=== PATIENT | female | born 1980 | race Caucasian/White ===

== ENCOUNTER 2022-12-11 16:56 | Emergency (ER) | payer OTHER ==
[2022-12-11] MEDS ORDERED: LORazepam 2 MG/ML VIAL ONE (17:42)
[2022-12-11] MEDS ORDERED: Ringers Lactate 1,000 ML IV ONE (17:43)
[2022-12-11 17:59] LABS: Absolute Lymphocytes (CBC) 1.8 K/uL (0.7-4.9); Hematocrit 43.1 % (36.0-45.0); Lymphocytes % 12.9 % (15.3-44.8); MPV 7.7 fL (7.6-11.3); RBC Red Blood Cell Count 4.68 M/uL (3.86-4.86)
[2022-12-11 18:04] LABS: Protime INR 0.95
[2022-12-11 18:09] LABS: Barbiturates NEGATIVE (NEGATIVE); Benzodiazepines NEGATIVE (NEGATIVE); Cocaine NEGATIVE (NEGATIVE); METHAMPHETAM NEGATIVE (NEGATIVE); Methadone NEGATIVE (NEGATIVE); Opiates NEGATIVE (NEGATIVE); Phencyclidine NEGATIVE (NEGATIVE); THC Cannibis NEGATIVE (NEGATIVE)
--- NOTE | 2022-12-11 18:09 | RAD REPORT ---
EXAM DESCRIPTION: RAD - Chest Single View - 12/11/2022 6:01 pm CLINICAL HISTORY: syncope/seizure Chest pain. COMPARISON: No comparisons FINDINGS: Portable technique limits examination quality. The lungs are grossly clear. The heart is normal in size. No displaced fractures. IMPRESSION: No acute intrathoracic process suspected.
[2022-12-11 18:18] LABS: Albumin 4.5 g/dL (3.4-5.0); Bilirubin Direct 0.2 mg/dL (0-0.2); Bilirubin Indirect, Calculated 0.6 mg/dL (0.2-0.8); Bilirubin Total 0.8 mg/dL (0.2-1.0); Magnesium 1.8 mg/dL (1.6-2.4); Potassium 4.4 mEq/L (3.5-5.1); Protein, Total 8.8 g/dL (6.4-8.2); Troponin High Sensitivity 6.2 pg/mL (<58.9)
[2022-12-11 18:33] LABS: Blood Morphology Comment NOT SEEN (NOT SEEN); Platelet Estimate INCR; White Blood Cell Scan OK (OK)
--- NOTE | 2022-12-11 18:33 | RAD REPORT ---
EXAM DESCRIPTION: CT - Head Brain Wo Cont - 12/11/2022 6:27 pm CLINICAL HISTORY: Headache;Seizure COMPARISON: No comparisons TECHNIQUE: All CT scans are performed using dose optimization technique as appropriate and may inclu de automated exposure control or mA/KV adjustment according to patient size. FINDINGS: No intracranial hemorrhage, hydrocephalus or extra-axial fluid collection.No areas of brai n edema or evidence of midline shift. The paranasal sinuses and mastoids are clear. The calvarium is intact. IMPRESSION: No acute intracranial abnormality.
[2022-12-11] MEDS ORDERED: AMIODARONE HCL 150 MG/3 ML INJ IV ONE (18:44)
[2022-12-11] MEDS ORDERED: D5W 100 ML IV ONE (18:47)
--- NOTE | 2022-12-11 18:53 | ER ---
Nurse's Notes [facility] Name: Guilherme Brooks Age: 42 yrs Sex: Female : 1980 Arrival Date: 12/11/2022 Time: 16:56 Bed 2 Private MD: Diagnosis: Syncope;Ventricular tachycardia Presentation: 12/11 17:05 Ebola Screen: Patient denies travel to an Ebola-affected area in the 21 days before 1 illness onset. Risk Assessment: Do you want to hurt yourself or someone else? Patient reports no desire to harm self or others. 17:23 Chief complaint: Spouse and/or significant other states: Possible seizures for over a ll1 month, saw Dr. Murphy for this. Today she had multiple "seizures" and N/V. Coronavirus screen: Client denies travel out of the [place] in the last 14 days. At this time, the client does not indicate any symptoms associated with coronavirus-19. Initial Sepsis Screen: Does the patient meet any 2 criteria? HR > 90 bpm. No. Patient's initial sepsis screen is negative. Does the patient have a suspected source of infection? No. Patient's initial sepsis screen is negative. Onset of symptoms was November 07, 2022. 17:23 Method Of Arrival: Ambulatory 1 17:23 Acuity: KERON 2 ll1 Triage Assessment: 17:25 General: Appears uncomfortable, ill, Behavior is cooperative, appropriate for age, dry ll1 heaving. General: Reports fatigue for sweating. Pain: Complains of pain in head Quality of pain is described as aching. Neuro: Reports headache a syncopal episode weakness possible seizure activity. GI: Reports nausea, vomiting. Historical: - Allergies: 17:23 No Known Allergies; ll1 - PMHx: 17:23 None; ll1 - PSHx: 17:23 None; ll1 - Immunization history:: Adult Immunizations up to date. - Social history:: Smoking status: Patient reports the use of cigarette tobacco products, smokes one pack cigarettes per day. Screenin:21 [facility] ED Fall Risk Assessment (Adult) History of falling in the last 3 months, ld1 including since admission No falls in past 3 months (0 pts). Abuse screen: Denies threats or abuse. Denies injuries from another. Nutritional screening: No deficits noted. Tuberculosis screening: No symptoms or risk factors identified. Assessment: 17:10 Reassessment: Started to walk into triage room. Suddenly appeared weak and dizzy. S.O. ll1 and I grabbed her before she fell. Lowered onto buttocks, slowly and gently. Slight shaking for less than 5 seconds. Knew her name and date directly after she stopped shaking. Did not appear postictal. Helped back up, placed in wheelchair during triage. Started to dry heave throughout triage. 18:21 Reassessment: Patient appears in no apparent distress at this time. No changes from ld1 previously documented assessment. Patient and/or family updated on plan of care and expected duration. Pain level reassessed. Patient is alert, oriented x 3, equal unlabored respirations, skin warm/dry/pink. Patient denies pain at this time. 18:25 Reassessment: Notified ERP of cardiac rhythm. ERP in room at this time. ld1 18:28 Cardiovascular: Rhythm is ventricular tachycardia. ld1 18:35 Reassessment: Pt rhythm continuing to convert from sinus rhythm to V tach. ERP in room. ld1 Pt hooked up to crash cart - pads placed on patient. ERP in room. Patient denies pain at this time. 19:03 Reassessment: Pt transferred to trauma gonzalez - report given to nurses. Pt placed on ld1 monitor and crash cart. ERP at bedside assessing patient with nurse. Vital Signs: 17:23 BP 126 / 74; Pulse 114; Resp 18; Temp 97.2; Pulse Ox 100% ; Height 5 ft. 10 in. ; Pain ll1 7/10; 18:20 BP 106 / 61; Pulse 51; Resp 18; Pulse Ox 100% on R/A; ld1 18:30 BP 148 / 70; Pulse 216; Resp 24; Pulse Ox 100% on R/A; ld1 18:40 Pulse 88; ld1 18:55 Pulse 106; Resp 19; Pulse Ox 100% ; ld1 19:14 BP 114 / 53; Pulse 98; Resp 18; Pulse Ox 99% on 3 lpm NC; mc5 19:17 Weight 81.65 kg (R); hb 20:00 BP 117 / 56; Pulse 116; Resp 22; Pulse Ox 100% on 3 lpm NC; ll3 19:17 Body Mass Index 25.83 (81.65 kg, 177.8 cm) hb 17:23 Pain Scale: Adult ll1 ED Course: 17:00 Patient arrived in ED. kj1 17:05 Arm band placed on. ll1 17:14 Anthony Goodwin DO is Attending Physician. ms3 17:20 Patient placed in an exam room, on a stretcher. ll1 17:25 Triage completed. ll1 17:27 Riana Goodwin, ISABELLE is Primary Nurse. ld1 18:03 Chest Single View XRAY In Process Unspecified. EDMS 18:21 Patient has correct armband on for positive identification. Placed in gown. Bed in low ld1 position. Call light in reach. Side rails up X2. Seizure precautions initiated. monitoring coordinator on. Pulse ox on. NIBP on. Door closed. Noise minimized. Warm blanket given. 18:21 No provider procedures requiring assistance completed. Inserted saline lock: 20 gauge ld1 in right antecubital area, using aseptic technique. Blood collected. 18:29 CT Head Brain wo Cont In Process Unspecified. EDMS 19:00 Initiated transfer [address] [facility], patient accepted at [address] Chapman to [facility] room 826. 19:01 Attending Physician role handed off by Anthony Goodwin DO sp4 19:01 Bulmaro Hernandez MD is Attending Physician. sp4 19:03 Report given to ISABELLE Gomez. ld1 19:48 Contacted [facility] to request transport, 27 min ETA given. 5 20:23 Patient transferred, IV remains in place. ll3 Administered Medications: 17:54 Drug: Ativan IVP 1 mg Route: IVP; Site: right antecubital; ld1 17:55 Drug: Lactated Ringers Solution IV 1000 ml Route: IV; Rate: bolus; Site: right ld1 antecubital; 18:41 Drug: amiodarone IVP 150 mg Route: IVP; Site: right antecubital; ld1 18:55 Drug: amiodarone IVPB 900 mg, D5W IV 500 ml Route: IVPB; Rate: 1 mg/min; Site: right ld1 antecubital; 19:30 Drug: Lidocaine IVP 100 mg Route: IVP; Site: left antecubital; ha1 19:45 Drug: Lidocaine IV 1 mg/min Route: IV; Rate: calculated rate; Site: left antecubital; ha1 20:24 Not Given (Physician Discretion): Midazolam IVP or IV 4 mg IVP once ll3 20:24 Not Given (Physician Discretion): Rocuronium IVP 100 mg IVP once ll3 20:24 Not Given (Physician Discretion): fentaNYL (PF) IV 25 mcg/kg/h IV at calculated rate ll3 See Administration Instructions; (Standard concentration 500 mcg / 50 mL NS [10 mcg / 1 mL); Recommended max rate 4 mcg/kg/hr; Titrate 0.25 mcg/kg/hr as often as every 3 minutes to achieve goal (see titration policy); Goal parameter RASS score 0 to -2 20:25 Not Given (Physician Discretion): Midazolam IVP or IV 0.01 mg/kg/h IV at calculated ll3 rate See Administration Instructions; (Standard concentration: 100 mg / 100 mL NS); Recommended max rate 0.1 mg/kg/hr; Titrate 0.01 mg/kg/hr as often as every 30 minutes to achieve goal (see titration policy); Goal parameter RASS 0 to -2 Medication: 20:23 VIS not applicable for this client. ll3 Outcome: 18:53 ER care complete, transfer ordered by . ms3 20:23 Transferred by helicopter to [facility], Transfer form completed. ll3 X-rays sent w/ patient. 20:23 Condition: stable 20:23 Instructed on the need for transfer, Demonstrated understanding of instructions. 20:31 Patient left the ED. vc1 Signatures: Dispatcher [employer] EDMS Amber Win RN RN Jordon, Estela kj1 Oni Augustine RN RN ll1 Anthony Goodwin DO DO ms3 Riana Goodwin RN RN ld1 Patricia Dumont RN RN ll3 Lisseth Lawton RN RN vc1 Valerie Swann RN RN ha1 Potepalov, Sergey, MD MD sp4 Anitha Mueller 5 Corrections: (The following items were deleted from the chart) 17:26 17:23 Patient placed in an exam room, on a stretcher, ll1 ll1 19:08 18:56 Reassessment: ld1 ld1
[2022-12-11] MEDS ORDERED: AMIODARONE IN DEXTROSE,ISO-OSM 360 MG/200 ML BAG IV ONE (18:54)
--- NOTE | 2022-12-11 18:54 | EDPHYS ---
Physician Documentation [facility] Name: Guilherme Brooks Age: 42 yrs Sex: Female : 1980 Arrival Date: 12/11/2022 Time: 16:56 Bed 2 Private MD: ED Physician Bulmaro Hernandez HPI: 12/11 17:25 This 42 yrs old Female presents to ER via Ambulatory with complaints of SEIZURES. ms3 17:25 42-year-old female with no past medical history presents for ear ringing, blacking out ms3 and shaking. Patient states she has seen Dr. Murphy for this and was given venlafaxine and propranolol. Patient states she currently has a headache, chest pain and has not vomited. Patient denies alleviating or inciting factors. Patient denies fevers, chills. Historical: - Allergies: 17:23 No Known Allergies; ll1 - PMHx: 17:23 None; ll1 - PSHx: 17:23 None; ll1 - Immunization history:: Adult Immunizations up to date. - Social history:: Smoking status: Patient reports the use of cigarette tobacco products, smokes one pack cigarettes per day. ROS: 17:25 Constitutional: Negative for fever, and chills. Neck: Negative for injury, pain, and ms3 swelling, Cardiovascular: Negative for chest pain, and palpitations. Respiratory: Negative for shortness of breath, cough, wheezing, and pleuritic chest pain, Abdomen/GI: Negative for abdominal pain, nausea, vomiting, diarrhea, and constipation, MS/Extremity: Negative for injury and deformity, Skin: Negative for injury, rash, and discoloration. 17:25 Neuro: Positive for Shaking. 17:25 Psych: Positive for anxiety. Exam: 17:25 Constitutional: This is a well developed, well nourished patient who is awake, alert, ms3 and in no acute distress. Head/Face: Normocephalic, atraumatic. ENT: Nares patent. No nasal discharge, no septal abnormalities noted. Tympanic membranes are normal and external auditory canals are clear. Oropharynx with no redness, swelling, or masses, exudates, or evidence of obstruction, uvula midline. Mucous membranes moist. Neck: Trachea midline, no cervical lymphadenopathy. Supple, full range of motion without nuchal rigidity, or vertebral point tenderness. No Meningismus. Chest/axilla: Normal chest wall appearance and motion. Nontender with no deformity. Cardiovascular: Regular rate and rhythm with a normal S1 and S2. No gallops, murmurs, or rubs. Normal PMI, no JVD. No pulse deficits. Respiratory: Lungs have equal breath sounds bilaterally, clear to auscultation and percussion. No rales, rhonchi or wheezes noted. No increased work of breathing, no retractions or nasal flaring. Abdomen/GI: Soft, non-tender, with normal bowel sounds. No distension or tympany. No guarding or rebound. No evidence of tenderness throughout. Skin: Warm, dry with normal turgor. Normal color with no rashes, no lesions, and no evidence of cellulitis. MS/ Extremity: Pulses equal, no cyanosis. Neurovascular intact. Full, normal range of motion. 19:03 ECG was reviewed by the Attending Physician. sp4 19:58 EKG time 1814. There is underlying sinus rhythm but there is also frequent PVCs and sp4 bigeminy pattern also there are rounds of ventricular tachycardia on this EKG 5 beats run of V. tach. No sign of ST elevation or depression based on underlying sinus rhythm. Right atrial enlargement, no ST elevation or depression is visualized normal sinus rhythm part Vital Signs: 17:23 BP 126 / 74; Pulse 114; Resp 18; Temp 97.2; Pulse Ox 100% ; Height 5 ft. 10 in. ; Pain ll1 7/10; 18:20 BP 106 / 61; Pulse 51; Resp 18; Pulse Ox 100% on R/A; ld1 18:30 BP 148 / 70; Pulse 216; Resp 24; Pulse Ox 100% on R/A; ld1 18:40 Pulse 88; ld1 18:55 Pulse 106; Resp 19; Pulse Ox 100% ; ld1 19:14 BP 114 / 53; Pulse 98; Resp 18; Pulse Ox 99% on 3 lpm NC; mc5 19:17 Weight 81.65 kg (R); hb 20:00 BP 117 / 56; Pulse 116; Resp 22; Pulse Ox 100% on 3 lpm NC; ll3 19:17 Body Mass Index 25.83 (81.65 kg, 177.8 cm) hb 17:23 Pain Scale: Adult ll1 MDM: 17:24 Patient medically screened. ms3 17:25 Differential diagnosis: cardiac arrhythmia, seizure, Anxiety. ms3 18:52 Transition of care: After a detail discussion of the patient's case, care is ms3 transferred to Bulmaro Hernandez MD. 19:03 Data reviewed: vital signs, nurses notes, old medical records, lab test result(s), EKG, sp4 radiologic studies. 20:01 Consideration of Admission/Observation Patient was admitted/placed on observation. sp4 Escalation of care including admission/observation considered. Management of patient was discussed with the following: Application Integration Architect: Discussed with county coroner at [facility] who advised transfer for electrophysiology. Patient was discussed with Dr. Pittman with [facility] who accepted the patient via aeromedical transport for evaluation for emergent defibrillator. . ED course: This is a 42-year-old female presents with frequent runs of ventricular tachycardia on her EKG and syncopal episodes at home associated with tremors. Patient care was accepted from Dr. Goodwin at 7 PM. Patient was given amiodarone which did not work very well, and currently patient was initiated on lidocaine infusion with 100 mg IV lidocaine bolus at this time patient is being closely monitored. Blood pressure remained stable at this time sedation intubation is not warranted patient did not require any emergent defibrillation. Patient was discussed with physician at [facility] and he advised concurrent amiodarone and lidocaine infusions. Patient will be transferred with aeromedical transport. . 12/11 17:25 Order name: Basic Metabolic Panel; Complete Time: 18:25 ms3 12/11 17:25 Order name: CBC with Diff; Complete Time: 19:10 ms3 12/11 17:25 Order name: Hepatic Function; Complete Time: 18:25 ms3 12/11 17:25 Order name: Magnesium; Complete Time: 18:25 ms3 12/11 17:25 Order name: Protime (+inr); Complete Time: 18:25 ms3 12/11 17:25 Order name: Ptt, Activated; Complete Time: 18:25 ms3 12/11 17:25 Order name: Troponin High Sensitivity; Complete Time: 18:25 ms3 12/11 17:25 Order name: UDS; Complete Time: 18:25 ms3 12/11 18:02 Order name: CBC Smear Scan; Complete Time: 19:10 EDMS 12/11 17:25 Order name: CT Head Brain wo Cont; Complete Time: 19:10 ms3 12/11 17:25 Order name: Chest Single View XRAY; Complete Time: 18:25 ms3 12/11 17:25 Order name: EKG; Complete Time: 17:26 ms3 12/11 17:25 Order name: Cardiac monitoring; Complete Time: 17:28 ms3 12/11 17:25 Order name: EKG - Nurse/Tech; Complete Time: 18:18 ms3 12/11 17:25 Order name: IV Saline Lock; Complete Time: 17:54 ms3 12/11 17:25 Order name: Labs collected and sent; Complete Time: 17:54 ms3 12/11 17:25 Order name: NPO; Complete Time: 17:28 ms3 12/11 17:25 Order name: O2 Per Protocol; Complete Time: 17:28 ms3 12/11 17:25 Order name: O2 Sat Monitoring; Complete Time: 17:28 ms3 EC:58 Rate is 107 beats/min. Rhythm is irregular, Sinus tachycardia with Unifocal PVCs. No ST sp4 changes noted. Administered Medications: 17:54 Drug: Ativan IVP 1 mg Route: IVP; Site: right antecubital; ld1 17:55 Drug: Lactated Ringers Solution IV 1000 ml Route: IV; Rate: bolus; Site: right ld1 antecubital; 18:41 Drug: amiodarone IVP 150 mg Route: IVP; Site: right antecubital; ld1 18:55 Drug: amiodarone IVPB 900 mg, D5W IV 500 ml Route: IVPB; Rate: 1 mg/min; Site: right ld1 antecubital; 19:30 Drug: Lidocaine IVP 100 mg Route: IVP; Site: left antecubital; ha1 19:45 Drug: Lidocaine IV 1 mg/min Route: IV; Rate: calculated rate; Site: left antecubital; ha1 20:24 Not Given (Physician Discretion): Midazolam IVP or IV 4 mg IVP once ll3 20:24 Not Given (Physician Discretion): Rocuronium IVP 100 mg IVP once ll3 20:24 Not Given (Physician Discretion): fentaNYL (PF) IV 25 mcg/kg/h IV at calculated rate ll3 See Administration Instructions; (Standard concentration 500 mcg / 50 mL NS [10 mcg / 1 mL); Recommended max rate 4 mcg/kg/hr; Titrate 0.25 mcg/kg/hr as often as every 3 minutes to achieve goal (see titration policy); Goal parameter RASS score 0 to -2 20:25 Not Given (Physician Discretion): Midazolam IVP or IV 0.01 mg/kg/h IV at calculated ll3 rate See Administration Instructions; (Standard concentration: 100 mg / 100 mL NS); Recommended max rate 0.1 mg/kg/hr; Titrate 0.01 mg/kg/hr as often as every 30 minutes to achieve goal (see titration policy); Goal parameter RASS 0 to -2 Disposition Summary: 12/11/22 18:53 Transfer Ordered Transfer Location: [facility] ms3 Reason: Higher level of care ms3 Condition: Stable ms3 Problem: new ms3 Symptoms: are unchanged ms3 Accepting Physician: Dr Pittman with Cardiology (12/11/22 20:31) vc1 Diagnosis - Syncope ms3 - Ventricular tachycardia ms3 Forms: - Medication Reconciliation Form ms3 - SBAR form ms3 Critical care time excluding procedures: 18:54 Critical care time: Bedside Care: 35 minutes, Consultation: 10 minutes. Total time: 45 ms3 minutes Signatures: Dispatcher [employer] EDOni Rosenthal RN RN ll1 Anthony Goodwin DO DO ms3 Riana Goodwin RN RN [email or web address] Lisseth Lawton RN RN vc1 Valerie Swann RN RN ha1 Potepalov, Sergey, MD MD sp4 Patricia Dumont RN ll3 Corrections: (The following items were deleted from the chart) 20:05 18:53 Dr miller sp4 20:31 20:05 Dr Pittman with Cardiology sp4 vc1
[2022-12-11] MEDS ORDERED: MIDAZOLAM HCL 2 MG/2 ML INJ ONE (19:03)
[2022-12-11] MEDS ORDERED: LIDOCAINE 100 MG/5 ML SYRINGE IV ONE (19:39)
[2022-12-11] MEDS ORDERED: LIDOCAINE/D5W 2,000 MG/500 ML BAG IV ONE (19:46)
[2022-12-11 20:58] VITALS: TEMP 97.2
[2022-12-11 21:08] VITALS: BP 117/56; O2SAT 100
--- NOTE | 2022-12-12 13:10 | EKG ---
Test Date: 2022-12-11 Test Time: 18:14:13 Manufacturing Quality Manager: Naomi REBOLLAR MEASUREMENT RESULTS: Intervals: Rate: 107 MT: 152 QRSD: 70 QT: 340 QTc: 453 [place]: P: 74 MT: 152 QRS: 83 T: 88 INTERPRETIVE STATEMENTS: Sinus tachycardia with frequent and consecutive premature ventricular complexes in a pattern of bigeminy and short run of ventricular tachycardia. Right atrial enlargement Abnormal ECG Compared to ECG 12/11/2022 18:12:30 Sinus rhythm no longer present Electronically Signed On 12-12-22 13:09:50 CDT by Felix Burgess
--- NOTE | 2022-12-12 13:10 | EKG ---
Test Date: 2022-12-11 Test Time: 18:12:30 Loader Technician: Naomi REBOLLAR MEASUREMENT RESULTS: Intervals: Rate: 87 ME: 158 QRSD: 70 QT: 338 QTc: 406 [place]: P: 74 ME: 158 QRS: 79 T: 77 INTERPRETIVE STATEMENTS: Sinus rhythm with frequent and consecutive premature ventricular complexes Right atrial enlargement Abnormal ECG No previous ECG available for comparison Electronically Signed On 12-12-22 13:09:57 CDT by Felix Burgess
== END 2022-12-11 20:31 | disposition short-term general hospital (02) ==
LOC: ER 16:56
DX: I47.20 Ventricular tachycardia, unspecified (principal); F17.210 Nicotine dependence, cigarettes, uncomplicated
CPT/HCPCS: 93005 ×2; 85025; 80048; 36415; 83735; 85610; 80076; 85730; 84484; 80307; 70450; 71045; 99285; J0282 ×2; J7120; J2001; J2250